=== PATIENT | male | born 1960 | race African-American/Black ===

== ENCOUNTER → 2019-03-23 | Outpatient (CLI) | payer BC ==
--- NOTE | 2019-03-23 14:58 | Diagnostic Imaging Report ---
Chest, 2 views, 03/23/2019. History: Preop clearance, left hip surgery. Comparison: None available. Findings: The cardiomediastinal silhouette and pulmonary vasculature are within normal limits. The lungs are clear without evidence of consolidation or pleural effusion. Mild degenerative changes are present throughout the thoracic spine. There are no acute osseous or soft tissue abnormalities. Impression: No acute cardiopulmonary abnormality. Signed by: Humberto Poe on 03/23/2019 2:55 PM
== END ==
LOC: RAD 14:26
PROVIDERS: ATTEND Family Medicine
DX: Z01.818 Encounter for other preprocedural examination (principal)
CPT/HCPCS: 71046

== ENCOUNTER 2019-04-05 07:35 | Observation (INO) | payer MEDICARE ==
[2019-04-04 12:03] LABS: BASOPHILS % 0.5 % (0.0-1.0); EOSINOPHILS # (AUTO) 0.1 (0.0-0.4); EOSINOPHILS % 1.2 % (0.0-6.0); HEMATOCRIT 42.8 % (38.2-49.6); HEMOGLOBIN 13.8 g/dL (14.0-18.0); LYMPHOCYTES # (AUTO) 1.7 (1.0-3.2); LYMPHOCYTES % 29.7 % (18.0-39.1); MEAN CORPUSCULAR HEMOGLOBIN 25.1 pg (28-32); MEAN CORPUSCULAR HGB CONC 32.2 g/dL (31-35); MONOCYTES # (AUTO) 0.7 (0.2-0.8); MONOCYTES % 12.5 % (4.4-11.3); NEUTROPHILS # (AUTO) 3.2 (2.1-6.9); NEUTROPHILS % 55.9 % (38.7-80.0); PLATELET COUNT 129 x10e3/uL (140-360); RED BLOOD COUNT 5.49 x10e6/uL (4.3-5.7); RED CELL DISTRIBUTION WIDTH 13.7 % (11.7-14.4)
[~2019-04-05] VITALS: Ht 177.8 cm; Wt 79.9 kg
[~2019-04-05 07:35] MED LIST: BACITRACIN 50,000 UNIT VIAL ONE; LOSARTAN POTASS25 MG PO; SODIUM CHLORIDE 0.9% 500ML 500 ML ONE; TRANEXAMIC ACID 1,000 MG/10 ML ML ONE; VANCOMYCIN HCL 1,000 MG ONE
--- OUTSIDE RECORDS SUMMARY | 2019-04-05 07:37 | XMS REPORT ---
Author Author [facility] Address Unknown Phone Unavailable Care Team Providers Care Ribbon Tier Name Role Phone MAO PAUL Unavailable Unavailable Problems This patient has no known problems. Allergies, Adverse Reactions, Alerts This patient has no known allergies or adverse reactions. Medications This patient has no known medications. Results Test Description Test Time Test Comments Text Results Atomic Results Result Comments CHEST 2 VIEWS 2019-03-23 14:54:00 [place] [address] Patient Name: LOINEL DIAZ MR #: [id number] : 1960 Age/Sex: 58/M Req #: [id number] Adm Physician: Ordered by: HUMBERTO GOLDMAN, MAO Champion MD Report #: [id number] Location: [facility] Room/Bed: Procedure: [id number] DX/CHEST 2 VIEWS Exam Date: 03/23/19 Exam Time: 1435 REPORT STATUS: Signed Chest, 2 views, 03/23/2019. History: Preop gunnar arance, left hip surgery. Comparison: None available. Findings: The cardiomediastinal silhouette and pulmonary vasculature are within normal limits. The lungs are clear without evidence of consolidation or pleural effusion. Mild degenerative changes are present throughout the thoracic spine. There are no acute osseous or soft tissue abnormalities. Impression: No acute cardiopulmonary abnormality. Signed by: Humberto Poe on 03/23/2019 2:55 PM Dictated By: HUMBERTO POE MD 54 Transcribed By: JOSE A on 03/23/191454 COPY TO: MAO PAUL HIP LEFT 2-3 VW (+/- PELVIS) 2019-03-01 17:08:00 [place] [address] Patient Name: LIONEL DIAZ MR #: [id number] : 1960 Age/Sex: 58/M Req #: [id number] Adm Physician: Ordered by: MAO PAUL MD, MD Report #: [id number] Location: [facility] Room/Bed: Procedure: [id number] DX/HIP LEFT 2-3 VW (+/- PELVIS) Exam Date: Exam Time: REPORT STATUS: Signed Radiographs of the left hip - 2 views HISTORY: Pain COMPARISON: None available. FINDINGS: Bones: No acute displaced fracture. Osseous alignment is within normal limits. Joints: Advanced degenerative arthrosis in the left hip with joint space loss, subchondral cystic change, subchondral sclerosis and peripheral osteophytosis. Soft tissues: The soft tissues appear unremarkable. IMPRESSION: Advanced degenerative arthrosis in the left hip with joint space loss, subchondral cystic change, subchondral sclerosis and peripheral osteophytosis. Signed by: Dr. Olivier Bauer M.D. on 03/01/2019 5:08 PM Dictated By: OLIVIER BAUER MD, MD 07 Transcribed By: JOSE A on 03/01/191707 COPY TO: MAO PAUL
[2019-04-05] MEDS ORDERED: CEFAZOLIN SOD 1 GM/NS 50ML 100 ML IV ONE (07:56)
[2019-04-05] MEDS ORDERED: CELECOXIB 200 MG CAP ONE (07:56)
[2019-04-05] MEDS ORDERED: GABAPENTIN 300 MG CAP ONE (07:56)
[2019-04-05] MEDS ORDERED: DEXAMETHASONE SOD PHOS INJ 4 MG/ML VIAL ONE ×2 (08:00→14:04)
[2019-04-05] MEDS ORDERED: ROPIVACAINE 246.25 MG, EPINEPHRINE HCL 1:1000 1ML 0.5 MG, CLONIDINE HCL 0.08 MG, KETORO... INJ ONE ×5 (08:00)
[2019-04-05] MEDS ORDERED: CHANTIX1 MG PO (08:10)
[2019-04-05] MEDS ORDERED: ASPIR 8181 MG PO (08:13)
[2019-04-05] MEDS: SODIUM CHLORIDE 0.9% 1000ML 1,000 ML IV SCH ×2 (10:59→20:59)
[2019-04-05] MEDS ORDERED: DOCUSATE SODIUM 100 MG CAP PO PRN (11:00)
[2019-04-05] MEDS ORDERED: DIPHENHYDRAMINE HCL INJ 50 MG/ML VIAL IM/IV PRN (11:00)
[2019-04-05] MEDS ORDERED: ACETAMINOPHEN 650 MG SUPP PR PRN (11:00)
[2019-04-05] MEDS ORDERED: ONDANSETRON HCL INJ 2MG/ML 2ML 2 MG/ML VIAL IV PRN (11:00)
[2019-04-05] MEDS ORDERED: PROMETHAZINE HCL (IM) 25 MG/ML VIAL IM PRN (11:00)
[2019-04-05] MEDS ORDERED: KETOROLAC TROMETHAMINE 30 MG/ML VIAL IV PRN (11:00)
[2019-04-05] MEDS ORDERED: HYDROCODONE/APAP 7.5MG-325MG 1 EA TAB PO PRN (11:00)
[2019-04-05] MEDS ORDERED: HYDROCODONE/APAP 5MG-325MG TAB PO PRN (11:00)
[2019-04-05] MEDS ORDERED: FENTANYL CITRATE/PF 100MCG/2 ML INJ ONE ×2 (11:39→18:24)
--- NOTE | 2019-04-05 11:57 | Diagnostic Imaging Report ---
EXAMINATION: PELVIS AP 1-2 VIEWS INDICATION: Postoperative COMPARISON: None FINDINGS: Portable AP view of the pelvis demonstrates immediate postoperative findings of left total hip replacement. Alignment appears anatomic. No unexpected fracture. Postoperative subcutaneous soft tissue emphysema. Surgical skin chelsea in place. Mild degenerative changes of the [place] right hip joint. IMPRESSION: Anatomic alignment status post left total hip replacement. Signed by: Fatmata Benito MD on 04/05/2019 11:54 AM
[2019-04-05] MEDS: ACETAMINOPHEN 1000 MG/100 ML IV SCH ×3 (12:55→23:53)
--- NOTE | 2019-04-05 13:53 | Operative Report ---
DATE OF PROCEDURE: 04/05/2019 SURGEON: Sha Anrdt MD STEEL CHIPPER: Reji Oakes, certified PA. PREOPERATIVE DIAGNOSIS: Osteoarthritis, left hip. POSTOPERATIVE DIAGNOSIS: Osteoarthritis, left hip. PROCEDURE: Left total hip arthroplasty. INDICATIONS: The patient is a 58-year-old gentleman, who has severe end-stage untreated arthritis of his left hip. He has failed conservative management and would like to proceed with a left total hip replacement. The risks and benefits of the procedure have been thoroughly explained. The hospital stay, implants, and recovery have been discussed. He states he understands and wishes to proceed. PROCEDURE IN DETAIL: The patient was brought to the operating room and placed under general anesthetic. He received prophylactic antibiotics and tranexamic acid in the holding area. He was positioned in the right lateral decubitus position. His left hip was prepped and draped in a sterile manner. A preoperative time-out was performed. A posterior approach was made to the left hip. Hemostasis was obtained with electrocautery. A self-retaining Charnley retractor was placed. Care was taken to avoid any injury to the sciatic nerve. The posterior capsule was carefully exposed. Further hemostasis was obtained with electrocautery. The short external rotators and posterior capsule were released. The hip was carefully dislocated. An oscillating saw was used to resect the femoral head. Extensive osteophyte formation and loss of articular cartilage were noted. Acetabular retractors were carefully placed. A large medial wall osteophyte was noted. A 46 mm reamer was used to medialize the socket to the true floor. The socket was then sequentially reamed up to 59 mm. This accomplished bleeding hemispherical cancellous bone. Several subchondral cysts were debrided with a curved curette and packed with autologous bone graft taken from the femoral head. A Tram Biomet 60 mm outer diameter OsseoTi socket was then impacted into place. Fixation was augmented with a single 25 mm screw. Dense sclerotic bone was encountered. The hip had been thoroughly irrigated several times with a shower tip pulsatile lavage. Additional irrigation with a spray mixture of diluted polymyxin and vancomycin spray was used. A highly cross-linked polyethylene liner with a 36 mm inner diameter was then seated. Care was taken to make sure that there was no evidence of soft tissue interposition. Attention was then directed towards the proximal femur. A box cutting osteotome and taper pin reamer were used to establish entry to the femoral canal. The canal was very narrow and dense and also sclerotic. The Taperloc broaches were impacted. Even a size 5 stem had difficulty seating and had excellent rotational stability. Trial reductions were performed. As the hip had been severely lateralized preoperatively, it was no surprise that a +3 mm neck provided improved soft tissue balancing and stability with a full arc of motion. His quadriceps were extremely tight. The hip continued to demonstrate approximately 30-degree flexion contracture with the knee flexed. The hip could come down into near full extension with the knee extended. The trial implants were removed. The Taperloc stem was seated in about 15 degrees of anteversion. Once again, there was dense bone with good interdigitation of the stem. A ceramic head with a +3 mm neck was then seated onto a clean and dry stem. A final reduction was performed. The posterior capsule was repaired with interrupted #2 Ethibond. The short external rotators were far contracted to be repaired. The hip was further irrigated and then 500 mg of vancomycin powder was sprinkled into the wound. A 100 mL premixed pericapsular YING injection was placed into the surrounding soft tissue. The fascia was closed with interrupted #2 Ethibond. The skin was closed with subcuticular Vicryl and chelsea. Estimated blood loss was 150 mL. All needle and sponge counts were correct. Sha Arndt MD DR/LISSETTE /[id number]
[2019-04-05] MEDS ORDERED: NEOSTIGMINE 1 MG/ML 10ML VIAL ONE (14:04)
[2019-04-05] MEDS ORDERED: ONDANSETRON HCL INJ 2MG/ML 2ML 2 MG/ML VIAL ONE (14:04)
[2019-04-05] MEDS ORDERED: ROCURONIUM BROMIDE 10 MG/ML 5ML VIAL ONE (14:04)
[2019-04-05] MEDS ORDERED: GLYCOPYRROLATE INJ 0.2 MG/ML VIAL ONE (14:04)
[2019-04-05] MEDS ORDERED: PROPOFOL IV EMULSION 10 MG/ML 20 ML VIAL ONE (14:04)
[2019-04-05] MEDS ORDERED: KETOROLAC TROMETHAMINE 30 MG/ML VIAL ONE (14:04)
[2019-04-05] MEDS ORDERED: LABETALOL HCL 5 MG/ML 20ML VIAL ONE (14:04)
[2019-04-05] MEDS ORDERED: LIDOCAINE HCL 2% LOCAL INJ 5 ML SDV VIAL INJ ONE (14:04)
[2019-04-05] MEDS ORDERED: EPHEDRINE SULFATE INJ 50 MG/ML VIAL ONE (14:04)
[2019-04-05] MEDS ORDERED: SEVOFLURANE INHAL SOLN 250 ML PEN BTL ONE (14:04)
[2019-04-05 14:30] VITALS: BP 115/66
--- NOTE | 2019-04-05 15:37 | NUR ---
DR MONTEZ OFFICE PREARRANGED FOLLOWING DISCHARGE PLAN OF:HOME TO [address], HOME HEALTH WITH HOME CARE PROVIDERS CONFIRMED WITH REN[facility]E IN PERSON DME 3 IN ONE COMMODE AND ROLLING WALKER WITH WHEELS. PROVIDED BY [employer] [phone], WILL BE DELIVERED BY 11 AM TOMORROW MORNING. SAVANNAH SIGNED AND CHOICE ON CHART COPY LEFT WITH PATIENT GAVE CARD FOR QUESTIONS AND OR CONCERNS.
[2019-04-05 16:31] VITALS: BP 148/65
[2019-04-05] MEDS ORDERED: CELECOXIB 100 MG CAP PO SCH (17:00)
[2019-04-05] MEDS ORDERED: MORPHINE SULFATE INJ 10 MG/ML ONE (18:24)
[2019-04-05] MEDS ORDERED: MIDAZOLAM HCL 2 MG/2 ML VIAL ONE (18:24)
[2019-04-05] MEDS: CEFAZOLIN SOD 1 GM/NS 50ML 50 ML IV SCH (18:42)
[2019-04-05] MEDS: CELECOXIB 200 MG CAP PO SCH (18:42)
[2019-04-05] MEDS: ASPIRIN 325 MG TAB PO SCH (18:42)
[2019-04-05] MEDS ORDERED: SODIUM CHLORIDE 0.9% 250ML 250 ML ONE (18:46)
[2019-04-05 20:00] VITALS: BP 102/51
[2019-04-05] MEDS ORDERED: ZOLPIDEM TARTRATE 5 MG TAB PO PRN (21:00)
[2019-04-05 21:10] VITALS: BP 102/51
[2019-04-06] VITALS: BP 105/62
[2019-04-06] MEDS: CEFAZOLIN SOD 1 GM/NS 50ML 50 ML IV SCH ×2 (01:50→09:25)
[2019-04-06 04:00] VITALS: BP 104/53
[2019-04-06] MEDS: ACETAMINOPHEN 1000 MG/100 ML IV SCH (05:40)
[2019-04-06 05:48] LABS: HEMATOCRIT 31.6 % (38.2-49.6); HEMOGLOBIN 10.3 g/dL (14.0-18.0)
[2019-04-06] MEDS: SODIUM CHLORIDE 0.9% 1000ML 1,000 ML IV SCH (06:45)
--- NOTE | 2019-04-06 07:30 | NUR ---
The pt. is up walking in the hallway with Physical therapy.
[2019-04-06 07:58] VITALS: BP 122/61
[2019-04-06 08:09] VITALS: BP 122/61
[2019-04-06] MEDS: CELECOXIB 200 MG CAP PO SCH (09:25)
[2019-04-06] MEDS: ASPIRIN 325 MG TAB PO SCH (09:25)
--- NOTE | 2019-04-06 09:30 | NUR ---
The pt's dressing was changed as per instructions of the PA. a large amount of old blood was noted. The pt. is a discharge when DME's arrive.
[2019-04-06] MEDS ORDERED: ONDANSETRON HCL 4 MG ORAL DISINTEGRATING TAB PO PRN (11:15)
[2019-04-06] MEDS ORDERED: ACETAMINOPHEN 1000 MG/100 ML IV PRN (12:00)
[2019-04-06 12:56] VITALS: BP 118/64
--- NOTE | 2019-04-06 13:36 | NUR ---
The pt. has been discharged home post instructions received and follow up care instructions were given.
== END 2019-04-06 13:23 | disposition home or self-care (01) ==
LOC: OR 07:35 → PACU V 11:01 → MED/SURG 13:50
PROVIDERS: ADMIT Specialist; ATTEND Specialist
DX: M16.12 Unilateral primary osteoarthritis, left hip (principal); Z01.812 Encounter for preprocedural laboratory examination; I10 Essential (primary) hypertension; Z87.891 Personal history of nicotine dependence; Z86.19 Personal history of other infectious and parasitic diseases; Z91.013 Allergy to seafood
CPT/HCPCS: 27130; 36415 ×2; 72170; 85014; 85018; 85025; 86850; 86900; 86920; 93005; 97116 ×2; 97139; 97161; 97530 ×2; C1713 ×3; C1734; G0378 ×2; J0131 ×2; J0171; J0690 ×2; J1100; J1885; J2001; J2250; J2270; J2405; J2704; J2710; J2795; J3010; J3370; J3490; J7040; J7050

== ENCOUNTER → 2019-08-12 | Day surgery (SDC) | payer MEDICARE, OTHER ==
[2019-08-09 14:00] LABS: BASOPHILS % 0.5 % (0.0-1.0); EOSINOPHILS # (AUTO) 0.1 (0.0-0.4); EOSINOPHILS % 1.4 % (0.0-6.0); HEMATOCRIT 40.9 % (38.2-49.6); HEMOGLOBIN 12.9 g/dL (14.0-18.0); LYMPHOCYTES # (AUTO) 1.6 (1.0-3.2); LYMPHOCYTES % 24.5 % (18.0-39.1); MEAN CORPUSCULAR HEMOGLOBIN 23.7 pg (28-32); MEAN CORPUSCULAR HGB CONC 31.5 g/dL (31-35); MONOCYTES # (AUTO) 0.9 (0.2-0.8); MONOCYTES % 13.9 % (4.4-11.3); NEUTROPHILS # (AUTO) 3.8 (2.1-6.9); NEUTROPHILS % 59.4 % (38.7-80.0); PLATELET COUNT 129 x10e3/uL (140-360); RED BLOOD COUNT 5.45 x10e6/uL (4.3-5.7); RED CELL DISTRIBUTION WIDTH 14.7 % (11.7-14.4)
[~2019-08-12] MED LIST changes: +ASPIR 8181 MG PO; -BACITRACIN 50,000 UNIT VIAL ONE; +CHANTIX1 MG PO; +FENTANYL CITRATE/PF 100MCG/2 ML INJ ONE; +FINASTERIDE5 MG PO; +FLOMAX0.4 MG PO; +MIDAZOLAM HCL 2 MG/2 ML VIAL ONE; +PROPOFOL IV EMULSION 10 MG/ML 20 ML VIAL ONE; -SODIUM CHLORIDE 0.9% 500ML 500 ML ONE; -TRANEXAMIC ACID 1,000 MG/10 ML ML ONE; -VANCOMYCIN HCL 1,000 MG ONE
[2019-08-12 07:45] VITALS: BP 118/81
== END | disposition home or self-care (01) ==
LOC: OR 05:55
PROVIDERS: ATTEND Internal Medicine Gastroenterology
DX: Z12.11 Encounter for screening for malignant neoplasm of colon (principal); I10 Essential (primary) hypertension; Z98.0 Intestinal bypass and anastomosis status; K57.30 Diverticulosis of large intestine without perforation or abscess without bleeding; K64.8 Other hemorrhoids; R73.03 Prediabetes; F17.210 Nicotine dependence, cigarettes, uncomplicated; Z91.041 Radiographic dye allergy status; Z91.013 Allergy to seafood; Z01.810 Encounter for preprocedural cardiovascular examination; Z01.812 Encounter for preprocedural laboratory examination; Z11.59 Encounter for screening for other viral diseases; Z79.82 Long term (current) use of aspirin
CPT/HCPCS: 36415; 85025; 87635; 93005; G0121; J2250; J2704; J3010; 45378

== ENCOUNTER → 2021-01-21 | Day surgery (SDC) | payer MEDICARE, OTHER ==
[~2021-01-21] MED LIST changes: -FENTANYL CITRATE/PF 100MCG/2 ML INJ ONE; +GABAPENTIN300 MG PO; -MIDAZOLAM HCL 2 MG/2 ML VIAL ONE; +POVIDONE IODINE 0.05% 0.05 % ML PO ONE; +PRAVASTATIN SOD10 MG PO
[2021-01-21 13:40] VITALS: BP 109/72
== END | disposition home or self-care (01) ==
LOC: OR 12:27
PROVIDERS: ATTEND Internal Medicine Gastroenterology
DX: D50.0 Iron deficiency anemia secondary to blood loss (chronic) (principal); K29.70 Gastritis, unspecified, without bleeding; K44.9 Diaphragmatic hernia without obstruction or gangrene; K21.00 Gastro-esophageal reflux disease with esophagitis, without bleeding; K57.50 Diverticulosis of both small and large intestine without perforation or abscess without bleeding; K64.8 Other hemorrhoids; B19.9 Unspecified viral hepatitis without hepatic coma; I10 Essential (primary) hypertension; F17.210 Nicotine dependence, cigarettes, uncomplicated; Z01.810 Encounter for preprocedural cardiovascular examination; Z01.812 Encounter for preprocedural laboratory examination; Z20.822 Contact with and (suspected) exposure to COVID-19; Z79.82 Long term (current) use of aspirin; Z79.899 Other long term (current) drug therapy
CPT/HCPCS: 43239; 93005; U0002

== ENCOUNTER → 2022-04-17 | Outpatient (CLI) | payer OTHER ==
[~2022-04-17] MED LIST changes: -POVIDONE IODINE 0.05% 0.05 % ML PO ONE; -PROPOFOL IV EMULSION 10 MG/ML 20 ML VIAL ONE
== END ==
LOC: RAD 14:40
PROVIDERS: ATTEND Nurse Practitioner Family
DX: Z72.0 Tobacco use (principal)
CPT/HCPCS: 71046